=== PATIENT | male | born 1995 | race Caucasian/White ===

== ENCOUNTER 2020-12-25 07:37 | Emergency (ER) | payer OTHER ==
[~2020-12-25] VITALS: Ht 170.2 cm; Wt 56.7 kg
[2020-12-25] MEDS ORDERED: ESSENTIAL DAIL1 EACH PO (08:17)
[2020-12-25] MEDS ORDERED: ESCITALOPRAM OX10 MG PO (08:17)
== END 2020-12-25 10:35 | disposition home or self-care (01) ==
LOC: ED 07:37
DX: K40.90 Unilateral inguinal hernia, without obstruction or gangrene, not specified as recurrent (principal)
CPT/HCPCS: 74018; 99283-25